=== PATIENT | female | born 1950 | race Caucasian/White ===

== ENCOUNTER 2017-05-18 09:39 | Inpatient (IN) | payer OTHER, MEDICARE ==
[~2017-05-18] VITALS: Ht 167.6 cm; Wt 84.6 kg
[~2017-05-18 09:39] MED LIST: ACETAMINOPHEN1 EAC4 PO; ADVAIR 250/501 DISK IH; ASPIR 8181 M1 PO; ATORVASTATIN CA80 MG PO; Aspirin E.C. PO; BENTYL20 MG PO; BRILINTA90 MG PO; CILOSTAZOL50 MG PO; CIPRO500 MG PO; CLONAZEPAM0.5 MG PO; CLOPIDOGREL75 MG PO; COMBIVENT RESPIM4 GM IH; Colace PO; DICYCLOMINE HCL20 MG PO; Dulcolax PO; EPIPEN ADU0.3 MG/0.3 IM; Flexeril PO; Habitrol,Nicoderm CQ TD; IBUPROFEN100 M1 PO; IMDUR30 MG PO; ISOSORBIDE MONO30 MG PO; Imdur PO; LIDOCAINE700 MG TD; Lipitor PO; Lopressor PO; MECLIZINE HCL25 MG PO; METOPROLOL TART25 MG PO; METRONIDAZOLE500 MG PO; MOTRIN400 MG PO; Miralax, Glycolax PO; NITROSTAT0.4 MG SL; Nitrostat,NitroQuick SL; PERCOCET 5/31 TABLET PO; PREDNISONE10 MG PO; Pepcid PO; Plavix PO; Remove Lidoderm Patch TD; SPIRIVA RESPIMAT4 GM IH; TOPAMAX25 MG PO; TOPAMAX50 MG PO; TREXALL10 MG PO; Theragran PO; Thiamine,Vitamin B1 PO; VENTOLIN HFA18 GM IH; Xanax PO; [UNRECOGNIZED DRUG - OTHER]
[2017-05-18 10:55] LABS: ADD MIUA? YES; BILIRUBIN NEGATIVE; BLOOD MODERATE; COLOR YELLOW ((YELLOW)); GLUCOSE (STRIP) NEGATIVE; KETONES 5; LEUKOCYTES SMALL; NITRITE POSITIVE; PROTEIN (STRIP) 30; SPECIFIC GRAVITY 1.014 (1.000-1.030); UROBILINOGEN 0.2 MG/DL (0.2-1.0)
[2017-05-18 11:01] LABS: BACTERIA NONE SEEN /HPF; EPITHELIAL CELLS NONE SEEN /HPF; MUCUS TRACE /LPF; RED BLOOD CELLS 0-5 /HPF (0-5); UCUL ADDED? YES; WHITE BLOOD CELLS TNTC /HPF (0-5)
[2017-05-18 11:06] LABS: HEMATOCRIT 38.3 % (36.0-46.0); MCH 33.7 PG (29.0-34.0); MCHC 32.1 G/DL (30.0-36.0); MCV 104.9 FL (83-99); MEAN PLAT.VOLUME 9.4 uM^3 (9.5-12.4); PLATELET COUNT 239 K/uL (156-360); RBC DIS.WIDTH-CV 12.7 % (11.8-14.6); RBC DIS.WIDTH-SD 49.1 % (39-53); RED BLOOD COUNT 3.65 M/uL (3.80-5.20); WHITE BLOOD COUNT 15.5 K/uL (4.1-10.2)
[2017-05-18 11:33] LABS: ANION GAP 13 MEQ/L (2-14); CHLORIDE 107 MEQ/L (99-109); POTASSIUM 3.5 MEQ/L (3.7-5.4); SAMPLE HEMOLYSIS CHECK 0; SAMPLE ICTERIC CHECK 0; SAMPLE LIPEMIA CHECK 0; SODIUM 140 MEQ/L (136-147); TOTAL BILIRUBIN 0.5 MG/DL (0.0-1.0)
[2017-05-18 11:38] LABS: ALKALINE PHOSPHATASE 69 IU/L (3-129); GFR ESTIMATE (CALCULATED) > 59 mL/min/; GLUCOSE 88 mg/dL (70-99); UREA NITROGEN (BUN) 28 mg/dL (9-23)
[2017-05-18 12:19] LABS: CK-MB 6.5 ng/mL (0.0-4.9)
[2017-05-18 12:41] LABS: CREATINE KINASE 952 IU/L (1-294); TOTAL CK 952 IU/L (1-294)
[2017-05-18] MEDS ORDERED: MEDROL DOSEPAK4 MG PO (14:43)
[2017-05-18] MEDS ORDERED: LYRICA50 MG PO (14:47)
[2017-05-18] MEDS ORDERED: PERCOCET 10/1 TABLET PO (14:47)
[2017-05-18 15:18] VITALS: BP 120/77
[2017-05-18 15:30] VITALS: BP 120/77
[2017-05-18 20:24] VITALS: BP 123/67
[2017-05-18 23:25] VITALS: BP 119/65
[2017-05-19 04:00] VITALS: BP 114/73
[2017-05-19 07:31] VITALS: BP 92/50
[2017-05-19 07:48] LABS: ANION GAP 7 MEQ/L (2-14); CHLORIDE 108 MEQ/L (99-109); CREATINE KINASE 427 IU/L (1-294); GFR ESTIMATE (CALCULATED) > 59 mL/min/; SAMPLE HEMOLYSIS CHECK 0; SAMPLE ICTERIC CHECK 0; SAMPLE LIPEMIA CHECK 0; SODIUM 138 MEQ/L (136-147); UREA NITROGEN (BUN) 14 mg/dL (9-23)
[2017-05-19 07:49] LABS: MCH 32.8 PG (29.0-34.0); MCHC 31.6 G/DL (30.0-36.0); MCV 103.9 FL (83-99); MEAN PLAT.VOLUME 9.5 uM^3 (9.5-12.4); PLATELET COUNT 224 K/uL (156-360); RBC DIS.WIDTH-CV 12.3 % (11.8-14.6); RBC DIS.WIDTH-SD 46.9 % (39-53); RED BLOOD COUNT 3.08 M/uL (3.80-5.20)
[2017-05-19 07:53] LABS: GLUCOSE 115 mg/dL (70-99)
[2017-05-19 12:13] VITALS: BP 113/85
[2017-05-19 19:25] VITALS: BP 100/53
[2017-05-19 23:22] VITALS: BP 123/61
[2017-05-20 03:23] VITALS: BP 129/75
[2017-05-20 07:19] LABS: HEMATOCRIT 31.3 % (36.0-46.0); MCH 33.7 PG (29.0-34.0); MCHC 32.3 G/DL (30.0-36.0); MCV 104.3 FL (83-99); MEAN PLAT.VOLUME 9.3 uM^3 (9.5-12.4); PLATELET COUNT 247 K/uL (156-360); RBC DIS.WIDTH-CV 12.4 % (11.8-14.6); RBC DIS.WIDTH-SD 47.6 % (39-53); WHITE BLOOD COUNT 10.7 K/uL (4.1-10.2)
[2017-05-20 07:40] LABS: ANION GAP 10 MEQ/L (2-14); CHLORIDE 109 MEQ/L (99-109); CREATINE KINASE 251 IU/L (1-294); GFR ESTIMATE (CALCULATED) > 59 mL/min/; GLUCOSE 96 mg/dL (70-99); SAMPLE HEMOLYSIS CHECK 0; SAMPLE ICTERIC CHECK 0; SAMPLE LIPEMIA CHECK 0; SODIUM 139 MEQ/L (136-147); UREA NITROGEN (BUN) 12 mg/dL (9-23)
[2017-05-20 08:25] VITALS: BP 119/68
[2017-05-20 16:30] VITALS: BP 116/61
[2017-05-20 19:33] VITALS: BP 111/63
[2017-05-20 23:03] VITALS: BP 115/65
[2017-05-21 03:35] VITALS: BP 118/62
[2017-05-21 07:24] LABS: HEMATOCRIT 30.3 % (36.0-46.0); MCH 33.7 PG (29.0-34.0); MCHC 32.3 G/DL (30.0-36.0); MCV 104.1 FL (83-99); MEAN PLAT.VOLUME 9.5 uM^3 (9.5-12.4); PLATELET COUNT 249 K/uL (156-360); RBC DIS.WIDTH-CV 12.3 % (11.8-14.6); RBC DIS.WIDTH-SD 46.8 % (39-53); RED BLOOD COUNT 2.91 M/uL (3.80-5.20); WHITE BLOOD COUNT 7.7 K/uL (4.1-10.2)
[2017-05-21 08:06] LABS: ANION GAP 6 MEQ/L (2-14); CHLORIDE 110 MEQ/L (99-109); GFR ESTIMATE (CALCULATED) > 59 mL/min/; GLUCOSE 81 mg/dL (70-99); POTASSIUM 4.6 MEQ/L (3.7-5.4); SAMPLE HEMOLYSIS CHECK 0; SAMPLE ICTERIC CHECK 0; SAMPLE LIPEMIA CHECK 0; SODIUM 141 MEQ/L (136-147); UREA NITROGEN (BUN) 9 mg/dL (9-23)
[2017-05-21 08:12] VITALS: BP 130/77
[2017-05-21 11:11] VITALS: BP 106/56
[2017-05-21 15:56] VITALS: BP 127/69
[2017-05-21 20:13] VITALS: BP 133/86
[2017-05-21 23:40] VITALS: BP 137/82
[2017-05-22 04:16] VITALS: BP 146/78
[2017-05-22 08:38] VITALS: BP 120/61
[2017-05-22] MEDS ORDERED: DOCUSATE SODIU100 MG PO (11:30)
[2017-05-22] MEDS ORDERED: LYRICA50 MG PO (11:31)
[2017-05-22] MEDS ORDERED: TYLENOL REGULA325 MG PO (11:31)
[2017-05-22] MEDS ORDERED: CIPRO500 MG PO (11:31)
[2017-05-22] MEDS ORDERED: OXYCODONE-APAP1 EACH PO (11:31)
[2017-05-22 12:25] VITALS: BP 118/65
== END 2017-05-22 16:07 | DRG 872 ==
LOC: EME 09:39 → EDOF 13:08 → 3EAST 13:08 → ENRESERV 13:11 → 3EAST 15:01
PROVIDERS: Family Medicine; Internal Medicine; Nurse Practitioner Family
DX: A41.51 Sepsis due to Escherichia coli [E. coli] (principal); N39.0 Urinary tract infection, site not specified; M62.82 Rhabdomyolysis; J44.9 Chronic obstructive pulmonary disease, unspecified; F32.9 Major depressive disorder, single episode, unspecified; G40.909 Epilepsy, unspecified, not intractable, without status epilepticus; G89.29 Other chronic pain; I10 Essential (primary) hypertension; K59.00 Constipation, unspecified; F17.200 Nicotine dependence, unspecified, uncomplicated; W19.XXXA Unspecified fall, initial encounter; Z68.30 Body mass index [BMI] 30.0-30.9, adult; I25.10 Atherosclerotic heart disease of native coronary artery without angina pectoris; R26.9 Unspecified abnormalities of gait and mobility; I25.2 Old myocardial infarction; Z95.5 Presence of coronary angioplasty implant and graft; K21.9 Gastro-esophageal reflux disease without esophagitis
CPT/HCPCS: 70450; 71101; 72131; 72158; 73522; 80048; 80053; 81003; 82550; 82553; 83605; 85027; 87040; 87077; 87086; 87186; 94799; 97530 GO; 97530 GP; 99202; 99281; 99285; J1650; J1956; J7030